=== PATIENT | female | born 1995 | race Caucasian/White ===

== ENCOUNTER 2020-05-13 03:37 | Emergency (ER) | payer OTHER | END 2020-05-13 05:00 | disposition home or self-care (01) | LOC: NAV ERS 03:37 | DX: F41.9 Anxiety disorder, unspecified (principal); F10.10 Alcohol abuse, uncomplicated; E11.65 Type 2 diabetes mellitus with hyperglycemia; G40.909 Epilepsy, unspecified, not intractable, without status epilepticus; F17.210 Nicotine dependence, cigarettes, uncomplicated; Z79.899 Other long term (current) drug therapy | CPT/HCPCS: 99284 ==